=== PATIENT | female | born 2000 | race Caucasian/White ===

== ENCOUNTER 2022-04-21 23:16 | Emergency (ER) | payer OTHER ==
[~2022-04-21] VITALS: Ht 152.4 cm; Wt 56.7 kg
[2022-04-21 23:56] VITALS: BP 138/92
--- NOTE | 2022-04-22 02:34 | NUR ---
Patient ambulated to bed 6.
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
--- NOTE | 2022-04-22 02:49 | NUR ---
Marky alvarez in [facility] - 04/22/22 at [address] Acuna examining patient.
--- NOTE | 2022-04-22 02:49 | NUR ---
Dr. Acuna examining patient.
[2022-04-22 03:24] VITALS: BP 125/82
--- NOTE | 2022-04-22 03:24 | NUR ---
Patient discharged with v/s stable. Written and verbal after care instructions given and explained. Patient verbalized understanding. Ambulatory with steady gait. All questions addressed prior to discharge. Advised to follow up with PMD.
== END 2022-04-22 03:24 | disposition home or self-care (01) ==
LOC: MED 23:16
DX: S09.90XA Unspecified injury of head, initial encounter (principal); R11.0 Nausea; H53.8 Other visual disturbances; V43.92XA Unspecified car occupant injured in collision with other type car in traffic accident, initial encounter; Y93.89 Activity, other specified; Y92.89 Other specified places as the place of occurrence of the external cause; Y99.8 Other external cause status
CPT/HCPCS: 99282